=== PATIENT | male | born 1995 | race Caucasian/White ===

== ENCOUNTER 2018-09-01 19:15 | Emergency (ER) | payer MEDICAID ==
[~2018-09-01] VITALS: Ht 167.6 cm; Wt 90.9 kg
[2018-09-01 19:32] VITALS: Ht 167.6 cm; Wt 90.9 kg
[2018-09-01] MEDS ORDERED: BUMEX2 MG PO (19:35)
[2018-09-01] MEDS ORDERED: BAYER CHEWABLE81 MG PO (19:35)
[2018-09-01] MEDS ORDERED: CHLOROTHIAZIDE250 MG PO (19:35)
[2018-09-01] MEDS ORDERED: LANOXIN125 MCG PO (19:35)
[2018-09-01] MEDS ORDERED: COREG25 MG PO (19:35)
[2018-09-01] MEDS ORDERED: ALBUTEROL2.5 MG/3 M INH (19:36)
[2018-09-01] MEDS ORDERED: PRINIVIL10 MG PO (19:36)
[2018-09-01] MEDS ORDERED: ATIVAN0.5 MG PO (19:36)
[2018-09-01] MEDS ORDERED: TRAZODONE HCL150 MG PO (19:37)
[2018-09-01] MEDS ORDERED: COMPAZINE25 MG RC (19:37)
[2018-09-01] MEDS ORDERED: ALDACTONE50 MG PO (19:37)
[2018-09-01] MEDS ORDERED: VITAMIN D31000 UNIT PO (19:38)
[2018-09-01] MEDS ORDERED: ZITHROMAX250 MG PO (19:38)
[2018-09-01 20:27] LABS: BASOPHILS 0.1 % (0-2); EOSINOPHILS 3.7 % (0-7); HEMATOCRIT 32.4 % (42.0-54.0); HEMOGLOBIN 11.1 g/dL (13.5-17.5); IMMATURE GRANULOCYTES 0.2 % (0-5); LYMPHOCYTES 12.9 % (15-50); MCH 29.3 pg (26.0-34.0); MCHC 34.3 g/dL (31.0-37.0); MCV 85.5 fL (80.0-100.0); MEAN PLATELET VOLUME 10.3 fL (7.4-10.4); MONOCYTES 7.2 % (2-11); NEUTROPHILS 75.9 % (40-80); PLATELET COUNT 329 10x3/uL (130-400); RBC 3.79 10x6/uL (4.20-6.10); RDW 12.4 % (11.5-14.5); WBC 9.1 10x3/uL (4.8-10.8)
[2018-09-01 20:57] LABS: ALBUMIN 3.8 g/dL (3.4-5.0); ANION GAP 24.1 mmol/L (8-16); BILIRUBIN - TOTAL 0.17 mg/dL (0.2-1.3); CALCIUM 9.4 mg/dL (8.5-10.1); CARBON DIOXIDE 20.9 mmol/L (21.0-32.0); CREATININE - SERUM 7.1 mg/dL (0.6-1.3); PROTEIN - SERUM 8.2 g/dL (6.4-8.2)
[2018-09-01 21:48] VITALS: BP 93/49
== END 2018-09-01 21:48 | disposition home or self-care (01) ==
LOC: D.ER 19:15
PROVIDERS: Family Medicine
DX: N18.9 Chronic kidney disease, unspecified (principal); I42.9 Cardiomyopathy, unspecified; I50.9 Heart failure, unspecified; E87.5 Hyperkalemia